=== PATIENT | male | born 1955 | race Caucasian/White ===

== ENCOUNTER 2018-08-11 13:23 | Emergency (ER) | payer SELFPAY ==
[~2018-08-11] VITALS: Ht 170.2 cm; Wt 84.1 kg
[~2018-08-11 13:23] MED LIST: MOTRIN; [UNRECOGNIZED DRUG - REMARK]
[2018-08-11 13:50] VITALS: Ht 170.2 cm; Wt 84.1 kg
--- NOTE | 2018-08-11 13:51 | ERD ---
ER Documentation Chief Complaint Chief Complaint Fall HPI This is a 62-year-old male with no significant past medical history who is presenting to with a trauma to the right lower extremity. The patient was operating a automatic wheel barrel and accidentally got his right leg pinned up between the wheel barrel and and adjacent to create. The patient was able to get himself out. It is unclear if the patient was ambulatory after the event. The patient sustained an abrasion to the right roger, but has no other deformity. The patient has strong pulses. His strength and sensation is intact. There is no swelling. The patient is were able to range his ankle and toes without issue. The leg is not cold or pale or cyanotic. The patient denies feeling sick recently. The patient denies fever or chills. The patient has had no headache or vision changes. The patient does not endorse neck or back pain. The patient denies lightheadedness or dizziness. The patient has had no chest pain or trouble breathing. The patient denies nausea or vomiting. The patient denies abdominal pain. The patient denies changes to bowel movements or urination. The patient has had no focal deficits. The patient has had no weakness or numbness or tingling to the face or extremities. ROS All systems reviewed and are negative except as per history of present illness. Medications Home Meds Discontinued Reported Medications [?Abx] No Conflict Check 05/11/13 [Motrin] No Conflict Check 05/11/13 Allergies Allergies: Coded Allergies: No Known Allergy (Unverified , 05/11/13) PMhx/Soc History of Surgery: No Anesthesia Reaction: No Hx Neurological Disorder: No Hx Respiratory Disorders: No Hx Cardiac Disorders: No Hx Psychiatric Problems: No Hx Miscellaneous Medical Probl: No Hx Alcohol Use: No Hx Substance Use: No Hx Tobacco Use: No FmHx Family History: No diabetes Physical Exam Vitals Vital Signs Date Temp Pulse Resp B/P (MAP) Pulse Ox O2 O2 Flow FiO2 Time Delivery Rate 08/11/18 98.9 62 16 154/88 98 13:50 (110) Physical Exam Const: No apparent distress, well-developed, well-nourished Head: Normocephalic, Atraumatic Eyes: Normal Conjunctiva. Extraocular movements intact. Pupils equal, round and reactive to light ENT: Normal External Ears, Nose and Mouth. Neck: Full range of motion. No meningismus. Resp: Clear to auscultation bilaterally, No wheezes, rales or rhonchi Cardio: Regular rate and rhythm. No murmurs, rubs or gallops Abd: Soft, non tender, non distended. Normal bowel sounds Skin: No petechiae or rashes Back: No midline tenderness. No CVA tenderness Ext: No cyanosis, or edema. Tenderness and a superficial abrasion to the right medial roger. Neur: Awake and alert, oriented 4. Cranial nerves intact. No facial droop. Normal strength, sensation and coordination. Psych: Normal Mood and Affect Procedures/MDM MDM The patient's presentation warrants further investigation. Previous medical records, if available, were reviewed. IMAGING Imaging and Radiology interpretation reviewed. XR R Tib/Fib FINDINGS: Osseous structures: appear well mineralized and intact with no fracture or destructive process identified. Joint spaces: Mild degenerative changes seen about the medial femoral tibial joint. Soft tissues: appear unremarkable. IMPRESSION: 1. No fracture or osseous destruction is evident. 2. Minimal degenerative change seen about the medial right femoral tibial joint space. 3. Otherwise, unremarkable right tibia-fibula. Electronically viewed and signed by Physician Varun on 08/11/2018 14:23 TREATMENT/DISPOSITION The patient presents after a trauma to the right lower extremity. X-rays were performed that did not reveal any fracture or osseous destruction. The patient is able to range the knee and ankle without issue. I have very low suspicion for dislocation. I do not feel the patient requires any splinting. Bacitracin was applied and the wound was dressed. The patient was offered crutches which she may use as needed. The patient was given fentanyl prior to arrival to the emergency department for pain control. I do not feel that further narcotic medication is warranted at this time. The patient was provided a tetanus shot in the emergency department. Upon reevaluation of the patient, symptoms have improved. No emergent diagnoses were identified. At this time, I feel that the patient stable for discharge. The patient was instructed to follow-up with a primary care physician in 1-3 days. The patient will be given strict precautions with which to return to the emergency department. Prescriptions: Ibuprofen The patient's blood pressure was elevated at greater than 120/80 while in the emergency department. The patient was otherwise stable with no evidence of hypertensive urgency or emergency. The patient does not require admission for blood pressure control. I have discussed with the patient the risks of hypertension. I have instructed the patient to return to the ER for any new or worsening symptoms including chest pain, shortness of breath, headache, blurred vision, confusion, nausea, vomiting or LOC. I have advised the patient to follow up with the primary care physician for outpatient monitoring and treatment for hypertension in 1-3 days. Disclaimer: Inadvertent spelling and grammatical errors are likely due to EHR/dictation software use and do not reflect on the overall quality of patient care. Note that the electronic time recorded on this note does not necessarily reflect the actual time of the patient encounter. Departure Diagnosis: Primary Impression: Injury of right leg Encounter type: initial encounter Qualified Codes: S89.91XA - Unspecified injury of right lower leg, initial encounter Additional Impressions: Pain of right tibia Abrasion of skin Condition: TY Harry MD Aug 11, 2018 13:51
[2018-08-11 15:08] VITALS: BP 142/77; PULSE 71; RESP 16
[2018-08-11] MEDS ORDERED: IBUP-1542 PO (15:12)
[2018-08-11] MEDS ORDERED: KETOROLAC 15 MG INJ IM STA (15:27)
[2018-08-11] MEDS ORDERED: DIPHTH/TET/ACEL PERTUSS (ADULT) 0.5 ML VIAL IM* ONE (15:30)
[2018-08-11] MEDS ORDERED: BACITRACIN 0.9 GM OINT TOP ONE (15:30)
== END 2018-08-11 15:08 | disposition home or self-care (01) ==
LOC: E/R 13:23
DX: S80.811A Abrasion, right lower leg, initial encounter (principal); W23.0XXA Caught, crushed, jammed, or pinched between moving objects, initial encounter; Y92.9 Unspecified place or not applicable; Z23 Encounter for immunization
CPT/HCPCS: 73590; 90471; 90715; 96372; 99284; J1885